=== PATIENT | female | born 1955 | race African-American/Black ===

== ENCOUNTER 2017-03-30 06:04 | Day surgery (SDC) | payer OTHER ==
[~2017-03-30] VITALS: Ht 165.1 cm; Wt 105.0 kg
[2017-03-30] VITALS (14 sets, daily range): BP systolic 105–155; BP diastolic 42–77; PULSE 64–80; RESP 11–31; Ht 165.1 cm; Wt 105.0 kg
[2017-03-30] MEDS ORDERED: FAMOTIDINE 20 MG TAB PO PRN (07:00)
[2017-03-30] MEDS ORDERED: DIPHENHYDRAMINE 50 MG CAP PO PRN (07:00)
[2017-03-30] MEDS ORDERED: SOD CHLORIDE 0.45% 1,000 ML IV SCH (07:00)
[2017-03-30] MEDS ORDERED: DIAZEPAM 5 MG TAB PO PRN (07:00)
[2017-03-30] MEDS ORDERED: CLOP75TA27 PO (07:14)
[2017-03-30] MEDS ORDERED: MAGN400T27 PO (07:14)
[2017-03-30] MEDS ORDERED: HYDR-3672 PO (07:15)
[2017-03-30] MEDS ORDERED: FOLI-49 PO (07:15)
[2017-03-30] MEDS ORDERED: ASPI-664 PO (07:15)
[2017-03-30] MEDS ORDERED: NIFE60TA7 PO (07:16)
[2017-03-30] MEDS ORDERED: LISI1TAB4 PO (07:17)
[2017-03-30] MEDS ORDERED: ATOR20TA38 PO (07:17)
[2017-03-30] MEDS ORDERED: METO25TA4 PO (07:18)
[2017-03-30] MEDS ORDERED: METF500T4 PO (07:19)
[2017-03-30] MEDS ORDERED: GABA300C16 PO (07:19)
[2017-03-30] MEDS ORDERED: ISOS30TA5 PO (07:20)
--- NOTE | 2017-03-30 07:34 | RADRPT ---
PROCEDURE: Chest Radiograph. CLINICAL INDICATION: Preop TECHNIQUE: Single frontal chest radiograph. COMPARISON: None available FINDINGS: Heart size is within normal limits. Atherosclerotic calcifications are present. There is a mild int erstitial prominence. No infiltrate or effusion is seen. The bones are intact. IMPRESSION: 1. No evidence of acute cardiopulmonary disease. 2. Atherosclerotic vascular disease. 3. Mild interstitial prominence. RPTAT: [facility] .Ru Sims MD, MD Date Time Electronically viewed and signed by .Ru Sims MD, on 03/30/2017 07:34 .B/
[2017-03-30] MEDS ORDERED: LIDOCAINE 1% (MDV) 20 ML INJ ONE (08:17)
[2017-03-30] MEDS ORDERED: HEPARIN 1000 UNITS/NS (A-LINE) 1,000 ML ONE (08:17)
[2017-03-30] MEDS ORDERED: FENTAnyl 50 MCG/ML VIAL ONE (08:17)
[2017-03-30] MEDS ORDERED: MIDAZOLAM 1 MG/ML 2 ML INJ ONE (08:17)
[2017-03-30 08:32] LABS: BASOPHIL # 0.1 10^3/ul (0.0-0.1); BASOPHILS % 0.7 % (0.0-2.0); EOSINOPHILS # 0.1 10^3/ul (0.0-0.5); EOSINOPHILS % 1.8 % (0.0-7.0); HEMATOCRIT 33.1 % (37.0-47.0); HEMOGLOBIN 10.3 g/dl (12.0-16.0); LYMPHOCYTES # 1.4 10^3/ul (0.8-2.9); LYMPHOCYTES % 19.4 % (15.0-51.0); MEAN CORPUSCULAR HEMOGLOBIN 26.3 pg (29.0-33.0); MEAN CORPUSCULAR HGB CONC 31.1 g/dl (32.0-37.0); MEAN CORPUSCULAR VOLUME 84.7 fl (82.0-101.0); MEAN PLATELET VOLUME 10.2 fl (7.4-10.4); MONOCYTE # 0.4 10^3/ul (0.3-0.9); MONOCYTES % 5.5 % (0.0-11.0); NEUTROPHIL # 5.4 10^3/ul (1.6-7.5); NEUTROPHILS % 72.2 % (39.0-77.0); PLATELET COUNT 446 10^3/UL (140-415); RED BLOOD COUNT 3.91 10^6/ul (4.20-5.40); RED CELL DISTRIBUTION WIDTH 14.6 % (11.5-14.5); WHITE BLOOD COUNT 7.4 10^3/ul (4.8-10.8)
[2017-03-30 08:49] LABS: INR 0.89; PT RATIO 0.9
[2017-03-30 08:50] LABS: PARTIAL THROMBOPLASTIN TIME 29.5 Sec (25.0-35.0)
[2017-03-30 08:57] LABS: CHOL/HDL RATIO 2.8 RATIO
[2017-03-30] MEDS ORDERED: DIAZEPAM 5 MG TAB ONE (09:00)
[2017-03-30 09:03] LABS: CALCIUM 9.9 mg/dl (8.4-10.2); CREATININE 1.18 mg/dl (0.44-1.00); POTASSIUM 4.4 mmol/L (3.5-5.1)
[2017-03-30] MEDS ORDERED: SOD CHLORIDE 0.9% 1,000 ML IV SCH (10:39)
--- NOTE | 2017-03-30 10:46 | SIPON ---
Date/Time of Note Date/Time of Note DATE: 03/30/17 TIME: 10:42 Operative Report Preoperative Diagnosis 1. Claudication-lifestyle limiting 2. pad Postoperative Diagnosis 1.Obstructive PAD Operation/Procedure Performed 1.Aortography 2.Bilateral iliofemoral runoff 3.Selective R WET FINISHER/SFA angiography Surgeon see signature line speech pathologist assistant Nita marcus Anesthesia: moderate sedation Estimated blood loss: minimal Transfusion Required none Specimen none Grafts/Implants none Complications none MELBA MADRIGAL Mar 30, 2017 10:46
[2017-03-30] MEDS ORDERED: morphine 2 MG INJ IV PRN (11:00)
[2017-03-30] MEDS ORDERED: ONDANSETRON 4 MG INJ IV PRN (11:00)
[2017-03-30] MEDS ORDERED: ACETAMINOPHEN 325 MG TAB PO PRN (11:00)
[2017-03-30] MEDS ORDERED: AL HYDROX/MG HYDROX/SIMETH 30 ML CUP PO PRN (11:00)
--- NOTE | 2017-03-30 11:56 | CARRPT ---
DATE OF PROCEDURE: 03/30/2017 TYPE OF PROCEDURE: 1. Abdominal aortography. 2. Bilateral iliofemoral runoff. 3. Selective right common femoral and superficial angiography. ATTENDING PHYSICIAN: Dr. Rio Cornelius. INDICATION: Claudication, obstructive PAD by arterial ultrasound. TYPE OF ANESTHESIA: Conscious and local. BRIEF HISTORY: Ms. Beltran is a 61-year-old female with a history of hypertension, dyslipidemia, diabetes mellitus, ongoing tobacco intake, who initially presented with complaints of lower extremity leg pain consistent with claudication. Patient underwent an arterial ultrasound revealing disease in her lower extremity, high-grade. Subsequently, patient referred for a lower extremity angiography to assess for possibly significant obstructive lower extremity peripheral artery disease leading to symptoms of claudication and abnormal arterial ultrasound. PROCEDURE: After informed consent was obtained, patient was brought to the [facility], where her right lower groin was prepped and draped in usual sterile fashion. 2 percent lidocaine infiltrated into the right groin area in order to achieve adequate anesthesia. Using the modified Seldinger technique, the right common femoral artery was cannulated and a 6-Eritrean arterial sheath was placed. A 5-Eritrean sheath was placed. A 5-Eritrean Omni Flush catheter was passed into the aorta, and using a power injector, distal aortography was undertaken with 40 cc of contrast. The catheter was then pulled back to above the iliac bifurcation and at this time, bilateral iliofemoral runoff was taken off with the use of a power injector. Subsequently, the oblique images were then taken and the iliacs further and the catheter was removed. Subsequently at this time, through the sheath a final power injection with 30 cc of contrast was performed from the common femoral artery down through the right lower extremity to further pacify the vessels. Subsequently, at this time, the patient's sheath was removed and manual pressure was held. sheath at the completion of the procedure. There were no known complications. FINDINGS: Aortography revealed no significant right and left renal artery stenosis. In the patient's left lower extremity, there was mild disease of the left common carotid artery and left external iliac. Just after the common femoral artery, patient appears to have occlusion of the superficial femoral artery with what appears to be a collateral circulation arising from the profunda femoral artery, which then reconstitutes the SFA in the very distal portion just as it becomes the popliteal artery with a number collaterals just above the level of the knee and then there appears to be intact 3-vessel runoff to the foot. In the right common iliac, there appears to be some filling defects in the areas of moderate stenosis. This extends into the external iliacs, so there is disease and to the level of the common femoral artery, it appears to the 100 percent occluded with a number of collaterals that then reconstitute the patient's vein in its proximal portion, then it is 100 percent occluded with a network of collaterals and has reconstitution of the popliteal artery at the area of the level knee and then appears once again, somewhat faint in flow but 3-vessel runoff to the foot. TOTAL FLUOROSCOPY TIME: 3.4 minutes. TOTAL CONTRAST: 221 cc. IMPRESSION: Bilateral obstructive peripheral arterial disease of the lower extremities involving high-grade lesions in the right iliac, right common femoral artery and bilateral superficial arteries with reconstitution at the level of the popliteal and intact 3-vessel to the foot bilaterally. RECOMMENDATIONS: In light of procedure findings at this time would: 1. Maximize medical management. 2. Aggressive risk factor reduction. 3. Patient will be referred for consideration of possible femoral endarterectomy and bilateral peripheral bypass surgery. 4. Patient will be admitted to the same day surgery center for post image observation and of symptoms with probable discharge later this afternoon. Dictated By: Rio Cornelius MD /suzy/lion /Document#: [id number] CC: Manuel La MD;*[facility]*
--- NOTE | 2017-03-30 16:10 | RADRPT ---
Vent Rate: 72 bpm RR Interval: 0 msec OR Interval: 170 msec QRS Duration: 116 msec QT Interval: 410 msec QTC Interval: 448 msec P-R-T [place]: 99 - -32 - 59 degrees Normal sinus rhythm Left axis deviation Anteroseptal infarct , age undetermined Abnormal ECG Electronically Signed By: Arturo Riley [id number]
== END 2017-03-30 16:35 | disposition home or self-care (01) ==
LOC: SDS 06:04
PROVIDERS: ATTEND Internal Medicine
DX: I73.9 Peripheral vascular disease, unspecified (principal)
CPT/HCPCS: 36200; 71010; 75630; 80048; 80061; 85025; 85610; 85730; 93005; C1769; C1894; J1644; J2250; J2270; J3010; Z7610

== ENCOUNTER 2018-07-19 06:32 | Day surgery (SDC) | payer OTHER ==
[2018-07-19] VITALS (19 sets, daily range): BP systolic 93–158; BP diastolic 5–95; PULSE 66–78; RESP 12–28; Ht 165.1 cm; Wt 245.0 kg
[~2018-07-19] VITALS: Ht 165.1 cm; Wt 245.0 kg
[~2018-07-19 06:32] MED LIST: ASPI81TA52 PO; ATOR20TA38 PO; CLOP75TA27 PO; FOLI-49 PO; GABA300C16 PO; HYDR-3672 PO; ISOS30TA67 PO; LISI1TAB4 PO; MAGN400T27 PO; METF500T24 PO; METO25TA4 PO; NIFE60TA18 PO
[2018-07-19] MEDS ORDERED: IODIXANOL LOCM 100 ML BTL ONE ×2 (07:34→10:24)
[2018-07-19] MEDS ORDERED: HEPARIN 1000 UNITS/ML 10 ML INJ ONE (07:34)
[2018-07-19] MEDS ORDERED: LIDOCAINE 1% (MDV) 20 ML INJ ONE (07:34)
[2018-07-19] MEDS ORDERED: VERAPAMIL 5 MG INJ ONE (07:35)
[2018-07-19] MEDS ORDERED: NITROGLYCERIN (IC) 100 MCG/ML INJ ONE (07:35)
[2018-07-19] MEDS ORDERED: NIFE60TA18 PO (07:57)
[2018-07-19] MEDS ORDERED: METO-448 PO (07:58)
[2018-07-19] MEDS ORDERED: CLOP75TA27 PO (07:58)
[2018-07-19] MEDS ORDERED: MAGN400T28 PO (07:59)
[2018-07-19] MEDS ORDERED: ERGO500013 PO (08:00)
[2018-07-19] MEDS ORDERED: GABA-526 PO (08:01)
[2018-07-19] MEDS ORDERED: ATOR20TA38 PO (08:01)
[2018-07-19] MEDS ORDERED: CILO100T PO (08:02)
[2018-07-19] MEDS ORDERED: LISI1TAB4 PO (08:02)
[2018-07-19] MEDS ORDERED: ISOS60TA PO (08:03)
[2018-07-19] MEDS ORDERED: ASPI81TA52 PO (08:03)
[2018-07-19] MEDS ORDERED: [UNRECOGNIZED DRUG - OTHER] PO (08:05)
[2018-07-19] MEDS ORDERED: MIDAZOLAM 1 MG/ML 2 ML INJ ONE (09:20)
[2018-07-19] MEDS ORDERED: FENTAnyl 50 MCG/ML VIAL ONE (09:20)
[2018-07-19] MEDS ORDERED: SOD CHLORIDE 0.9% 1,000 ML IV SCH (10:20)
--- NOTE | 2018-07-19 10:24 | SIPON ---
Date/Time of Note Date/Time of Note DATE: 07/19/18 TIME: 10:23 Operative Report Preoperative Diagnosis 1.abnl mpi 2.abnl CTA 3.chest pain Postoperative Diagnosis 1.nonobstructive cad Operation/Procedure Performed 1.[facility] Surgeon see signature line instruction assistant principal 1.Rickey Anesthesia: moderate sedation Estimated blood loss: minimal Transfusion Required none Specimen none Grafts/Implants none Complications none MELBA MADRIGAL Jul 19, 2018 10:24
[2018-07-19] MEDS ORDERED: ONDANSETRON 4 MG INJ IV PRN (10:30)
[2018-07-19] MEDS ORDERED: morphine 2 MG INJ IV PRN (10:30)
[2018-07-19] MEDS ORDERED: AL HYDROX/MG HYDROX/SIMETH 30 ML CUP PO PRN (10:30)
[2018-07-19] MEDS ORDERED: ACETAMINOPHEN 325 MG TAB PO PRN (10:30)
[2018-07-19] MEDS ORDERED: OXYCODONE/ACETAMINOPHEN (5/325) TAB PO ONE (11:30)
--- NOTE | 2018-07-19 12:04 | RADRPT ---
Vent Rate: 63 bpm RR Interval: 0 msec [place] Interval: 186 msec QRS Duration: 104 msec QT Interval: 442 msec QTC Interval: 452 msec P-R-T [place]: 82 - -39 - 41 degrees Normal sinus rhythm Left axis deviation Low voltage QRS Septal infarct , age undetermined Abnormal ECG Electronically Signed By: Arturo Riley [id number]
--- NOTE | 2018-07-19 12:33 | CARRPT ---
DATE OF PROCEDURE: 07/19/2018 TYPE OF PROCEDURES: 1. Left heart catheterization. 2. Coronary angiography. 3. Left ventriculogram. ATTENDING PHYSICIAN: Melba Cornelius MD REFERRING PHYSICIAN: Manuel La MD INDICATION: Chest pain refractory to medical therapy with positive stress test and positive CTA for possible LAD stenosis. TYPE OF ANESTHESIA: Conscious and local. BRIEF HISTORY: Ms. Beltran is a 63-year-old female with history of hypertension, dyslipidemia, diabete s mellitus, ongoing tobacco use and PAD, who initially presented with complaints of substernal chest pain. The patient subsequently underwent cardiac stress test showing positive ischemia and a CTA rev ealed possible LAD stenosis versus artifactual change. Given these findings, the patient was referre d for and presents today in order to undergo left heart catheterization to assess possibility of sign ificant obstructive coronary symptoms of chest pain, positive CTA and positive stress test. DESCRIPTION OF PROCEDURE: After informed consent was obtained, the patient was brought to [facility] cardiac catheterization lab where her right radial area was prepped and draped in usual sterile fashion. A 2% lidocaine was infiltrated into right radial area in order to achieve latasha quate anesthesia. Using the modified Seldinger technique, the radial artery was cannulated and a 6-F rench arterial sheath was placed. A 6-Malagasy JL3.5 catheter was used to cannulate the left main andrea nary ostium. With contrast injection, multiple views of left coronary system were obtained. A JL3.5 was removed over a guidewire and a JR4 was used to cannulate the right coronary arterial ostium. Wi th contrast injection, multiple views of the right coronary were obtained. JR4 was removed over a gu idewire and a 6-Malagasy pigtail was passed in ascending artery and used to measure LVEDP and then pull back across the aortic valve to assess for significant gradient after power injector was used to perf orm left ventriculogram. Subsequently at this time, the pigtail catheter was removed. The patient's sheath was removed. TR band was applied. There were no noted complications. FINDINGS: Coronary angiography: Left main is 5 mm, no significant focal stenoses. Circumflex proxi iftikhar is a 3 mm vessel and put into the circ continuation AV groove which is a 3 mm vessel and has mi ld luminal irregularities of 10% to 20% and a high branching obtuse marginal 2.5 mm with no significa nt focal stenoses. LAD is proximally is a 3.5 mm vessel and in its midportion, it has a tubular sten osis of approximately 30% to 40%. The remainder of LAD is free from focal stenoses; thereafter proxi mal branching diagonal is 2 mm vessel and no significant focal stenoses and a mid branching diagonal is sub 2 mm vessel with no significant focal stenoses. The right coronary artery proximally is a 3.5 mm vessel and it is a small nondominant vessel and therefore dueñas out towards the mid portion of t he vessel. The circumflex therefore gives off a left-sided PDA, 2 mm with no significant focal steno sis. Left ventriculogram revealed a left ventricular ejection fraction preserved at 60% to 65%. Left vent ricular end diastolic pressure is 9 pre-LV gram, 12 post-LV gram. No significant aortic stenosis by gradient. TOTAL FLUOROSCOPY TIME: 3.5 minutes. TOTAL CONTRAST: 85 mL. IMPRESSION: 1. Mild to moderate nonobstructive coronary artery disease. 2. Preserved left ventricular systolic function. 3. Low normal left heart filling pressures. 4. No significant aortic stenosis by gradient. 5. A 1+ mitral regurgitation. RECOMMENDATIONS: In light of procedure findings at this time, we would: 1. Maximize medical management. 2. Aggressive risk factor reduction. 3. Based on the patient's symptoms for possible gastroesophageal reflux disease. 4. The patient is scheduled for followup appointment in our office, at which time we will discuss re sults of this procedure and assure the patient had no post-catheterization access complications. Dictated By: MELBA MUNSON/MAX Conf#: [id number] DID#: [id number]
== END 2018-07-19 15:48 | disposition home or self-care (01) ==
LOC: CCL 06:32 → SDS 06:32 → CCL 15:48
PROVIDERS: ATTEND Internal Medicine
DX: I25.10 Atherosclerotic heart disease of native coronary artery without angina pectoris (principal); I10 Essential (primary) hypertension; E78.5 Hyperlipidemia, unspecified; E11.9 Type 2 diabetes mellitus without complications; F17.200 Nicotine dependence, unspecified, uncomplicated; I34.0 Nonrheumatic mitral (valve) insufficiency
CPT/HCPCS: 71045; 80048; 80061; 82962; 85025; 85610; 85730; 93005; 93458; C1887; J1644; J2250; J3010; Q9967; Z7610